=== PATIENT | female | born 1945 | race Caucasian/White ===

== ENCOUNTER → 2018-04-29 15:09 | Outpatient (CLI) | payer OTHER, SELFPAY ==
[2018-04-29 15:40] LABS: Add Manual Diff / Slide Review NO; Eosinophils Percent Auto 3.6 % (2-4); Hematocrit 40.5 % (36-46); Hemoglobin 13.5 g/dL (12.0-16.0); Lymphocytes Percent Auto 16.4 % (25-40); Mean Corpuscular HGB Conc 33.4 % (30-36); Mean Corpuscular Hemoglobin 31.1 PG (26-34); Monocytes Percent Auto 8.4 % (3-14); Neutrophils Absolute Auto 6300 /uL (3000-5900); Neutrophils Percent Auto 70.6 % (50-75); Platelet Count 306 X10^3/uL (150-400); Red Blood Cell Count 4.35 X10^6/uL (4.0-5.2); Red Cell Distribution Width 14.1 % (11.6-14.8)
[2018-04-29 16:12] LABS: Alanine Aminotransferase 20 IU/L (9-52); Albumin 4.3 g/dL (3.5-5.0); Albumin Globulin Ratio 1.3 (1.0-2.8); Alkaline Phosphatase 101 U/L (38-126); Aspartate Aminotransferase 21 IU/L (14-36); BUN Creatinine Ratio 24.4 (6-22); Bilirubin Total 0.5 mg/dL (0.2-1.3); Blood Urea Nitrogen 22 mg/dL (7-17); Calcium 9.6 mg/dL (8.4-10.2); Carbon Dioxide 31 mmol/L (22-32); Chloride 98 mmol/L (98-107); Estimated Glomerular Filt Rate > 60.0 mL/min (>60); Globulin 3.2 g/dL (1.7-4.1); Glucose 100 mg/dL (80-110); HDL Cholesterol 82 mg/dL (40-60); HEMOLYSIS < 15 (0-50); Potassium 4.7 mmol/L (3.4-5.1); Sodium 138 mmol/L (137-145); Total Protein 7.5 g/dL (6.3-8.2); Triglycerides 120 mg/dL (35-150)
[2018-04-29 16:14] LABS: LDL Cholesterol Calculated 219 mg/dL (<100)
[2018-04-29 16:17] LABS: Cholesterol 343 mg/dL (140-199)
== END ==
PROVIDERS: Family Provider Family Medicine; PCP Family Medicine; Visit Provider Family Medicine
DX: E78.5 Hyperlipidemia, unspecified (principal); J45.20 Mild intermittent asthma, uncomplicated
CPT/HCPCS: 36415; 80053; 80061; 84443; 85025

== ENCOUNTER → 2019-04-01 12:13 | Outpatient (CLI) | payer OTHER, SELFPAY ==
[2019-04-01 13:13] LABS: Add Manual Diff / Slide Review NO; Basophils Absolute Auto 100 /uL (0-100); Basophils Percent Auto 1.1 % (0-2); Eosinophils Absolute Auto 200 /uL (0-450); Eosinophils Percent Auto 2.2 % (2-4); Hematocrit 29.3 % (36-46); Hemoglobin 9.7 g/dL (12.0-16.0); Lymphocytes Absolute Auto 1100 /uL (1100-4500); Lymphocytes Percent Auto 13.6 % (25-40); Mean Corpuscular HGB Conc 33.3 % (30-36); Mean Corpuscular Hemoglobin 28.7 PG (26-34); Mean Corpuscular Volume 86.2 fL (80-100); Monocytes Absolute Auto 700 /uL (0-900); Monocytes Percent Auto 9.3 % (3-14); Neutrophils Absolute Auto 5800 /uL (1500-7000); Neutrophils Percent Auto 73.8 % (50-75); Platelet Count 386 X10^3/uL (150-400); Red Cell Distribution Width 15.7 % (11.6-14.8); White Blood Cell Count 7.9 X10^3/uL (4.5-11.0)
== END ==
PROVIDERS: PCP Family Medicine; Visit Provider Family Medicine
DX: D62 Acute posthemorrhagic anemia (principal); K92.2 Gastrointestinal hemorrhage, unspecified
CPT/HCPCS: 36415; 85025

== ENCOUNTER → 2019-05-25 12:05 | Outpatient (CLI) | payer OTHER, SELFPAY ==
[2019-05-25 12:48] LABS: Hematocrit 33.4 % (36-46); Hemoglobin 10.7 g/dL (12.0-16.0); Mean Corpuscular HGB Conc 32.1 % (30-36); Mean Corpuscular Hemoglobin 25.3 PG (26-34); Mean Corpuscular Volume 78.8 fL (80-100); Platelet Count 438 X10^3/uL (150-400); Red Blood Cell Count 4.23 X10^6/uL (4.0-5.2); Red Cell Distribution Width 17.5 % (11.6-14.8); White Blood Cell Count 8.2 X10^3/uL (4.5-11.0)
[2019-05-25 13:04] LABS: Neutrophils Absolute Manual 5822 /uL (3000-5900); Total Cells Counted 100
[2019-05-25 13:05] LABS: Microcytosis 3+
[2019-05-25 13:30] LABS: Ferritin 7.1 ng/mL (11.1-264)
== END ==
PROVIDERS: PCP Family Medicine; Visit Provider Family Medicine
DX: K92.2 Gastrointestinal hemorrhage, unspecified (principal); D64.9 Anemia, unspecified
CPT/HCPCS: 36415; 82728; 85025

== ENCOUNTER → 2019-08-03 11:57 | Outpatient (CLI) | payer OTHER, SELFPAY ==
[2019-08-03 12:47] LABS: Hemoglobin 12.4 g/dL (12.0-16.0)
== END ==
PROVIDERS: PCP Family Medicine; Visit Provider Family Medicine
DX: D64.9 Anemia, unspecified (principal)
CPT/HCPCS: 36415; 82728; 85014; 85018

== ENCOUNTER → 2020-04-20 12:13 | Outpatient (CLI) | payer MEDICARE, SELFPAY | PROVIDERS: PCP Family Medicine; Visit Provider Family Medicine | DX: R39.198 Other difficulties with micturition (principal) | CPT/HCPCS: 87077; 87086; 87186 ==

== ENCOUNTER → 2021-03-20 15:13 | Outpatient (CLI) | payer MEDICARE, SELFPAY ==
[2021-03-20 15:52] LABS: Add Manual Diff / Slide Review NO; Basophils Absolute Auto 100 /uL (0-100); Basophils Percent Auto 1.1 % (0-2); Eosinophils Absolute Auto 200 /uL (0-450); Eosinophils Percent Auto 2.9 % (2-4); Hemoglobin 13.4 g/dL (12.0-16.0); Lymphocytes Absolute Auto 800 /uL (1100-4500); Lymphocytes Percent Auto 13.8 % (25-40); Mean Corpuscular HGB Conc 32.6 % (30-36); Mean Corpuscular Hemoglobin 30.4 PG (26-34); Monocytes Absolute Auto 500 /uL (0-900); Monocytes Percent Auto 8.9 % (3-14); Neutrophils Absolute Auto 4500 /uL (1500-7000); Neutrophils Percent Auto 73.3 % (50-75); Platelet Count 259 X10^3/uL (150-400); Red Blood Cell Count 4.41 X10^6/uL (4.0-5.2); Red Cell Distribution Width 14.9 % (11.6-14.8); White Blood Cell Count 6.1 X10^3/uL (4.5-11.0)
[2021-03-20 16:53] LABS: Alanine Aminotransferase 14 IU/L (<35); Albumin 3.9 g/dL (3.5-5.0); Albumin Globulin Ratio 1.1 (1.0-2.8); Alkaline Phosphatase 87 U/L (38-126); Aspartate Aminotransferase 39 IU/L (14-36); BUN Creatinine Ratio 24.7 (6-22); Bilirubin Total 0.3 mg/dL (0.2-1.3); Blood Urea Nitrogen 21 mg/dL (7-17); Calcium 8.9 mg/dL (8.4-10.2); Carbon Dioxide 28 mmol/L (22-32); Chloride 98 mmol/L (98-107); Cholesterol 304 mg/dL (140-199); Estimated Glomerular Filt Rate > 60.0 mL/min (>60); Globulin 3.5 g/dL (1.7-4.1); Glucose 99 mg/dL (80-110); HDL Cholesterol 55 mg/dL (40-60); HEMOLYSIS < 15 (0-50); LDL Cholesterol Calculated 229 mg/dL (<100); Potassium 4.5 mmol/L (3.4-5.1); Sodium 132 mmol/L (137-145); Total Protein 7.4 g/dL (6.3-8.2); Triglycerides 100 mg/dL (35-150)
[2021-03-20 17:24] LABS: Ferritin 19 ng/mL (11-264)
[2021-03-22 19:36] LABS: ANA Screen, IFA Negative (.)
== END ==
PROVIDERS: PCP Family Medicine; Referring Provider Family Medicine; Visit Provider Family Medicine
DX: I10 Essential (primary) hypertension (principal); E78.5 Hyperlipidemia, unspecified; M25.40 Effusion, unspecified joint; M25.50 Pain in unspecified joint; K92.2 Gastrointestinal hemorrhage, unspecified
CPT/HCPCS: 36415; 80053; 80061; 82728; 84443; 85025; 86038

== ENCOUNTER → 2021-10-25 12:25 | Outpatient (CLI) | payer MEDICARE, SELFPAY ==
--- NOTE | 2021-10-25 12:27 | DI.RAD.S_ITS ---
PROCEDURE: XR LUMBAR SPINE 2-3V INDICATIONS: back pain TECHNIQUE: 3 views of the lumbar spine were acquired. COMPARISON: None. FINDINGS: Bones: 5 dvj-ivw-falohvw vertebrae are present. There is ejnj-nl-[id number] rightward curvature of lumbar spine centered at L3 level. No spondylolisthesis. Straightening of normal lumbar lordosis is seen. No vertebral body compression fractures. Degenerative endplate changes and bilateral facet arthrosis throughout lumbar spine more prominent at L3-4 through L5-S1 levels are seen. No suspicious bony lesions. Soft tissues: Overlying bowel gas pattern is normal. No suspicious soft tissue calcifications. IMPRESSION: Degenerative disc disease throughout lumbar spine as above. No acute compression fracture or spondylolisthesis. Ugfr-pp-tnoznpjg dextroscoliosis centered at L3 level. Dictated by: Ramírez Gallego M.D. on 10/25/2021 at 13:08 Approved by: Ramírez Gallego M.D. on 10/25/2021 at 13:09
--- NOTE | 2021-10-25 12:27 | DI.RAD.S_ITS ---
PROCEDURE: XR PELVIS 1-2V INDICATIONS: back pain TECHNIQUE: 1 view(s) of the pelvis acquired. COMPARISON: [facility], CR, XR LUMBAR SPINE 2-3V, 10/25/2021, 12:18. FINDINGS: Bones: No fractures or dislocations. No suspicious bony lesions. Mild joint narrowing with periarticular osteophyte formation of the hip joints bilaterally. Degenerative disc and facet disease involves the inferior lumbar spine. Soft tissues: Visualized bowel gas pattern is normal. No suspicious soft tissue calcifications. IMPRESSION: Mild symmetric hip joint degeneration. Dictated by: Alcides Green RR Interpreted: Ramírez Gallego MD on 10/25/2021 at 13:09 Transcribed by: KENIA on 10/25/2021 at 13:09 Approved by: Ramírez Gallego M.D. on 10/25/2021 at 15:34
== END ==
PROVIDERS: PCP Family Medicine; Referring Provider Family Medicine; Visit Provider Family Medicine
DX: M16.0 Bilateral primary osteoarthritis of hip (principal); M51.36 Other intervertebral disc degeneration, lumbar region; M51.37 Other intervertebral disc degeneration, lumbosacral region; M54.9 Dorsalgia, unspecified; M41.86 Other forms of scoliosis, lumbar region; G89.29 Other chronic pain
CPT/HCPCS: 72100; 72170

== ENCOUNTER → 2022-05-02 16:18 | Outpatient (CLI) | payer MEDICARE, SELFPAY ==
--- NOTE | 2022-05-02 | DI.RAD.S_ITS ---
PROCEDURE: XR HIP W PEL IF DONE RUTHANN MIN 4V INDICATIONS: PAIN IN LOWER BACK TECHNIQUE: AP pelvis with lateral view(s) of the bilat hip(s). COMPARISON: [facility], , XR PELVIS 1-2V, 10/25/2021, 12:18. FINDINGS: Bones: No fractures or dislocations. Pelvic ring appears intact. No suspicious bony lesions. Moderate bilateral axial joint space narrowing with periarticular osteophyte formation. Degenerative disc and facet disease involves the inferior lumbar spine. Soft tissues: The visualized bowel gas pattern is normal. No suspicious soft tissue calcifications. IMPRESSION: Moderate symmetric hip joint degeneration similar to prior examination. Dictated by: Alcides Green RRA Interpreted: Ramírez Gallego MD on 05/02/2022 at 16:51 Transcribed by: KENIA on 05/02/2022 at 16:52 Approved by: Ramírez Gallego M.D. on 05/02/2022 at 17:21
== END ==
PROVIDERS: PCP Family Medicine
DX: M54.50 Low back pain, unspecified (principal); M16.0 Bilateral primary osteoarthritis of hip
CPT/HCPCS: 73522

== ENCOUNTER → 2023-02-26 15:22 | Outpatient (CLI) | payer MEDICARE, SELFPAY ==
--- NOTE | 2023-02-26 15:24 | DI.RAD.S_ITS ---
PROCEDURE: XR FOOT RT MIN 3V INDICATIONS: Right foot pain lateral side x one month TECHNIQUE: 3 views of the foot were acquired. COMPARISON: None. FINDINGS: Bones: No fractures or dislocations. No suspicious bony lesions. Joint space narrowing and periarticular osteophyte formation at the 1st metatarsophalangeal joint, as well as the talonavicular and navicular cuneiform joints. Soft tissues: No tibiotalar joint effusion. Achilles tendon appears normal. IMPRESSION: Osteoarthritis. No acute fracture. No osseous lesion. If symptoms and/or clinical suspicion for pathology persist, further assessment with repeat, or advanced imaging (e.g., CT, MRI, or bone scan) may be helpful for further assessment. Dictated by: Logan Abraham M.D. on 02/26/2023 at 16:00 Transcribed by: BRUNO on 02/26/2023 at 16:01 Approved by: Logan Abraham M.D. on 02/26/2023 at 16:45
== END ==
PROVIDERS: PCP Family Medicine; Referring Provider Physician Assistant; Visit Provider Physician Assistant
DX: M19.071 Primary osteoarthritis, right ankle and foot (principal); M79.671 Pain in right foot
CPT/HCPCS: 73630

== ENCOUNTER → 2023-05-19 15:56 | Outpatient (CLI) | payer MEDICARE, SELFPAY ==
[2023-05-19 16:18] LABS: Appearance Urine UA CLOUDY; Bilirubin Urine UA NEGATIVE (NEGATIVE); Color Urine UA YELLOW; Glucose Urine UA NEGATIVE (Negative); Ketones Urine UA NEGATIVE (NEGATIVE); Leukocyte Esterase Urine UA 3+ (NEGATIVE); Nitrite Urine UA POSITIVE (Negative); Occult Blood Urine UA 2+ (Negative); Protein Urine UA NEGATIVE (Negative); Urobilinogen Urine UA 0.2 E.U./dL (0.2)
[2023-05-19 17:02] LABS: Bacteria Urine Few (2-10); RBC Urine 1-5/HPF (0-5/HPF); WBC Urine >100/HPF (0-5/HPF)
[2023-05-19 17:03] LABS: Culture Indicated Urine Specimen Cultured; Squamous Epithelial Cell Urine 1-5 /HPF (0-5/HPF)
== END ==
PROVIDERS: PCP Family Medicine; Referring Provider Family Medicine; Visit Provider Family Medicine
DX: R30.0 Dysuria (principal)
CPT/HCPCS: 81003; 81015; 87077; 87086; 87186

== ENCOUNTER → 2023-06-11 15:29 | Outpatient (CLI) | payer MEDICARE, SELFPAY ==
[2023-06-11 16:07] LABS: Appearance Urine UA CLEAR; Bilirubin Urine UA NEGATIVE (NEGATIVE); Color Urine UA YELLOW; Glucose Urine UA NEGATIVE (Negative); Ketones Urine UA NEGATIVE (NEGATIVE); Leukocyte Esterase Urine UA 2+ (NEGATIVE); Nitrite Urine UA NEGATIVE (Negative); Occult Blood Urine UA 2+ (Negative); Protein Urine UA NEGATIVE (Negative); Urobilinogen Urine UA 0.2 E.U./dL (0.2)
[2023-06-11 16:39] LABS: Bacteria Urine Few (2-10); Culture Indicated Urine Specimen Cultured; RBC Urine 0-1/HPF (0-5/HPF); Squamous Epithelial Cell Urine 0-1 /HPF (0-5/HPF); WBC Urine 30-100/HPF (0-5/HPF)
== END ==
PROVIDERS: PCP Family Medicine; Referring Provider Family Medicine; Visit Provider Family Medicine
DX: R82.90 Unspecified abnormal findings in urine (principal)
CPT/HCPCS: 81001; 87077; 87086; 87186

== ENCOUNTER → 2023-07-02 16:06 | Outpatient (CLI) | payer MEDICARE, SELFPAY ==
[2023-07-02 17:16] LABS: Appearance Urine UA CLEAR; Bilirubin Urine UA NEGATIVE (NEGATIVE); Color Urine UA YELLOW; Glucose Urine UA NEGATIVE (Negative); Ketones Urine UA NEGATIVE (NEGATIVE); Leukocyte Esterase Urine UA NEGATIVE (NEGATIVE); Nitrite Urine UA NEGATIVE (Negative); Occult Blood Urine UA NEGATIVE (Negative); Protein Urine UA NEGATIVE (Negative); Specific Gravity Urine UA 1.015 (1.000-1.035); Urobilinogen Urine UA 0.2 E.U./dL (0.2)
[2023-07-02 17:47] LABS: pH Urine UA 5.5 (4.5-8.0)
== END ==
PROVIDERS: PCP Family Medicine; Referring Provider Physician Assistant; Visit Provider Physician Assistant
DX: N30.00 Acute cystitis without hematuria (principal)
CPT/HCPCS: 81001

== ENCOUNTER → 2023-07-19 15:18 | Outpatient (CLI) | payer MEDICARE, SELFPAY | PROVIDERS: PCP Family Medicine; Visit Provider Nurse Practitioner Family | DX: N39.0 Urinary tract infection, site not specified (principal) | CPT/HCPCS: 87077; 87086; 87186 ==

== ENCOUNTER → 2024-03-15 10:45 | Outpatient (CLI) | payer MEDICARE, SELFPAY ==
[2024-03-15 11:19] LABS: Add Manual Diff / Slide Review NO; Basophils Absolute Auto 100 /uL (0-100); Basophils Percent Auto 1.3 % (0-2); Eosinophils Absolute Auto 200 /uL (0-450); Eosinophils Percent Auto 3.7 % (2-4); Hematocrit 37.7 % (36-46); Hemoglobin 12.5 g/dL (12.0-16.0); Lymphocytes Absolute Auto 800 /uL (1100-4500); Lymphocytes Percent Auto 14.1 % (25-40); Mean Corpuscular HGB Conc 33.1 % (30-36); Mean Corpuscular Hemoglobin 30.2 PG (26-34); Mean Corpuscular Volume 91.5 fL (80-100); Monocytes Absolute Auto 600 /uL (0-900); Monocytes Percent Auto 10.5 % (3-14); Neutrophils Absolute Auto 4000 /uL (1500-7000); Neutrophils Percent Auto 70.4 % (50-75); Platelet Count 274 X10^3/uL (150-400); Red Blood Cell Count 4.13 X10^6/uL (4.0-5.2); White Blood Cell Count 5.6 X10^3/uL (4.5-11.0)
[2024-03-15 11:36] LABS: Alanine Aminotransferase 10 IU/L (<35); Albumin 4.2 g/dL (3.5-5.0); Albumin Globulin Ratio 1.3 (1.0-2.8); Alkaline Phosphatase 69 U/L (38-126); Aspartate Aminotransferase 24 IU/L (14-36); BUN Creatinine Ratio 22.8 (6-22); Bilirubin Total 0.5 mg/dL (0.2-1.3); Blood Urea Nitrogen 21 mg/dL (7-17); Calcium 8.9 mg/dL (8.4-10.2); Carbon Dioxide 27 mmol/L (22-32); Chloride 101 mmol/L (98-107); Estimated Glomerular Filt Rate > 60 mL/min (>60); Globulin 3.3 g/dL (1.7-4.1); Glucose 100 mg/dL (80-110); HEMOLYSIS < 15 (0-50); Lipase 76 U/L (23-300); Sodium 133 mmol/L (137-145); Total Protein 7.5 g/dL (6.3-8.2)
== END ==
PROVIDERS: PCP Family Medicine; Referring Provider Family Medicine; Visit Provider Family Medicine
DX: E78.5 Hyperlipidemia, unspecified (principal); Z87.19 Personal history of other diseases of the digestive system; K25.9 Gastric ulcer, unspecified as acute or chronic, without hemorrhage or perforation; M54.9 Dorsalgia, unspecified; G89.29 Other chronic pain
CPT/HCPCS: 36415; 80053; 83690; 84443; 85025

== ENCOUNTER → 2024-04-16 16:35 | Outpatient (CLI) | payer MEDICARE, SELFPAY | PROVIDERS: PCP Family Medicine; Visit Provider Nurse Practitioner Family | DX: R30.0 Dysuria (principal) | CPT/HCPCS: 87077; 87086; 87186 ==

== ENCOUNTER → 2024-10-07 16:30 | Outpatient (CLI) | payer MEDICARE, SELFPAY | PROVIDERS: PCP Family Medicine; Visit Provider Student in an Organized Health Care Education/Training Program | DX: R30.0 Dysuria (principal) | CPT/HCPCS: 87077; 87086; 87186 ==

== ENCOUNTER → 2025-05-10 14:30 | Outpatient (CLI) | payer MEDICARE, SELFPAY | PROVIDERS: PCP Family Medicine; Visit Provider Chiropractor | DX: R30.0 Dysuria (principal) | CPT/HCPCS: 87077; 87086; 87186 ==

== ENCOUNTER → 2025-08-08 13:54 | Outpatient (CLI) | payer MEDICARE, SELFPAY ==
[2025-08-08 14:43] LABS: Add Manual Diff / Slide Review NO; Hematocrit 39.2 % (36-46); Hemoglobin 13.2 g/dL (12.0-16.0); Lymphocytes Absolute Auto 800 /uL (1100-4500); Mean Corpuscular HGB Conc 33.5 % (30-36); Mean Corpuscular Hemoglobin 31.6 PG (26-34); Mean Corpuscular Volume 94.2 fL (80-100); Platelet Count 222 X10^3/uL (150-400)
[2025-08-08 15:07] LABS: Alanine Aminotransferase 10 IU/L (<35); Albumin 4.2 g/dL (3.5-5.0); Albumin Globulin Ratio 1.3 (1.0-2.8); Alkaline Phosphatase 67 U/L (38-126); Blood Urea Nitrogen 17 mg/dL (7-17); Calcium 9.2 mg/dL (8.4-10.2); Carbon Dioxide 29 mmol/L (22-32); Chloride 97 mmol/L (98-107); Estimated Glomerular Filt Rate > 60 mL/min (>60); Globulin 3.2 g/dL (1.7-4.1); Glucose 104 mg/dL (70-99); HEMOLYSIS < 15 (0-50); Potassium 4.8 mmol/L (3.4-5.1); Sodium 132 mmol/L (137-145); Total Protein 7.4 g/dL (6.3-8.2)
[2025-08-08 15:42] LABS: TSH w/ Reflex to FT4 1.63 uIU/mL (0.47-4.68)
== END ==
PROVIDERS: PCP Family Medicine; Referring Provider Family Medicine; Visit Provider Family Medicine
DX: J44.9 Chronic obstructive pulmonary disease, unspecified (principal); E78.5 Hyperlipidemia, unspecified; K25.4 Chronic or unspecified gastric ulcer with hemorrhage
CPT/HCPCS: 36415; 80053; 84443; 85025

== ENCOUNTER → 2025-09-20 13:36 | Outpatient (CLI) | payer MEDICARE, SELFPAY | PROVIDERS: PCP Family Medicine; Visit Provider Chiropractor | DX: R30.0 Dysuria (principal) | CPT/HCPCS: 87077; 87086 ==

== ENCOUNTER 2025-09-23 14:51 | Inpatient (IN) | payer MEDICARE, SELFPAY ==
[2025-09-23 15:09] VITALS: BP 137/60; PULSE 74; RESP 17; TEMP 36.7; O2SAT 98; BMI 27.1
--- NOTE | 2025-09-23 15:09 | ED.GENADULT ---
HPI - General Adult General Chief complaint: Urogenital-Female Stated complaint: [facility] sent for IV antibiotics Time Seen by Provider: 09/23/25 14:56 History of Present Illness HPI narrative: 79-year-old woman seen 2 days ago diagnosed with urinary tract infection started on Cipro, came to urgent care today and still complaining of discomfort still lower down. Nothing that is ?inside? and she is chronic back pain so it is difficult to tell if there is any site pain. She states ?I have not good? but I am not particularly bad. No fevers, no vomiting, no chest pain or shortness for breath. On the she had Pseudomonas that was sensitive to cefepime, Cipro which she was placed on, levofloxacin which she has sensitivities to, meropenem and piperacillin. With findings still persisting will opt to treat her with piperacillin for at least 24 hours and re-evaluate Related Data Home Medications ?Medication ?Instructions ?Recorded ?Confirmed naproxen 2 tab PO .QHS 03/15/24 09/23/25 ciclopirox 8 % topical solution topical ONCE PM 09/23/25 Previous Rx's ?Medication ?Instructions ?Recorded ipratropium 0.5 mg-albuterol 3 mg 3 ml inhalation Q4-6H PRN 02/26/23 (2.5 mg base)/3 mL nebulization shortness of breath or wheezing soln #90 mL Disabled Parking Permit See Rx Instructions .Route 03/15/24 .COMPLEX #1 ea albuterol sulfate 90 mcg/actuation 2 puff inhalation Q4-6H PRN 03/15/24 aerosol inhaler (ProAir HFA) shortness of breath or wheezing #18 grams acyclovir 400 mg tablet 400 mg PO QDAY #90 tabs 09/15/24 montelukast 10 mg tablet 10 mg PO DAILY #90 tabs 02/03/25 pantoprazole 40 mg tablet,delayed 40 mg PO DAILY #90 tabs 02/03/25 release sertraline 100 mg tablet 100 mg PO DAILY #90 tabs 02/03/25 trazodone 150 mg tablet 300 mg (2 x 150 mg) PO QPM #180 02/03/25 tabs hydrocodone 5 mg-acetaminophen 325 1 tab PO DAILY PRN pain #30 tabs 08/08/25 mg tablet cefdinir 300 mg capsule 300 mg PO BID 7 days #14 caps 09/20/25 phenazopyridine 200 mg tablet 200 mg PO QPC PRN pain 6 doses #6 09/20/25 (Pyridium) tabs Allergies Allergy/AdvReac Type Severity Reaction Status Date / Time Sulfa (Sulfonamide Allergy Severe BURN/SWELLI Verified 09/23/25 15:08 Antibiotics) NG bupivacaine Allergy Mild Verified 09/23/25 15:08 chlorpheniramine (From Allergy Mild EMOTIONAL Verified 09/23/25 15:08 Actifed Cold-Allergy) DISORDER/ARRYTHMIA levofloxacin Allergy Mild ARTHRALGIA Verified 09/23/25 15:08 phenylephrine (From Actifed Allergy Mild EMOTIONAL Verified 09/23/25 15:08 Cold-Allergy) DISORDER/ARRYTHMIA pseudoephedrine (From Allergy Mild EMOTIONAL Verified 09/23/25 15:08 Actifed Cold-Allergy) DISORDER/ARRYTHMIA tetracycline Allergy Mild NAUSEA Verified 09/23/25 15:08 triprolidine (From Actifed Allergy Mild EMOTIONAL Verified 09/23/25 15:08 Cold-Allergy) DISORDER/ARRYTHMIA Review of Systems Review of Systems Narrative: Urinary frequency continues Patient History Medical History Rash and nonspecific skin eruption Joint swelling Joint pain Laceration of scalp Right shoulder tendinitis Trochanteric bursitis, right hip Acute blood loss anemia GI bleed COPD (chronic obstructive pulmonary disease) Asthma Hay fever Depression GERD (gastroesophageal reflux disease) Hyperlipidemia Surgical History History of knee replacement History of brain tumor History of shoulder surgery Status post cholecystectomy Status post appendectomy S/P total abdominal hysterectomy and bilateral salpingo-oophorectomy Status post laminectomy Social History household members: none alcohol intake: current substance use type: does not use Exam Initial Vital Signs Initial Vital Signs: Vital Signs Temperature 98.1 F 09/23/25 15:09 Pulse Rate 74 09/23/25 15:09 Respiratory Rate 17 09/23/25 15:09 Blood Pressure 137/60 09/23/25 15:09 Pulse Oximetry 98 09/23/25 15:09 Oxygen Delivery Method Room Air 09/23/25 15:09 General: Alert appropriate in no acute distress Respiratory: Able to speak in full sentences, no obvious respiratory distress Abdomen: No significant suprapubic tenderness, no flank pain Skin: No obvious rashes, warm and dry Neurologic: Grossly intact no obvious asymmetries or abnormalities Psych: appropriate insight and affect, cooperative Course Orders Ordered: ED Orders 09/23/25 15:20 CBC Auto Diff [Complete Blood Count AUTO DIFF] Stat CMP [Comprehensive Metabolic Panel] Stat 09/23/25 17:29 UA Complete [Urinalysis and Microscopic] Stat Urine Culture Stat Vital Signs Vital signs: Vital Signs - 8 hr 09/23/25 15:09 09/23/25 18:40 09/23/25 20:10 Temperature 98.1 F 97.5 F L Pulse Rate 74 57 L 57 L Respiratory Rate 17 16 18 Blood Pressure 137/60 184/83 H 152/71 H Pulse Oximetry 98 98 97 Oxygen Delivery Method Room Air Room Air Room Air Medical Decision Making Lab Data 09/23/25 15:20 09/23/25 15:20 Labs: Lab Results 09/23/25 09/23/25 Range/Units 15:20 17:29 WBC 7.8 (4.5-11.0) X10^3/uL RBC 4.09 (4.0-5.2) X10^6/uL Hgb 13.2 (12.0-16.0) g/dL Hct 38.8 (36-46) % MCV 94.9 (80-100) fL MCH 32.2 (26-34) PG MCHC 33.9 (30-36) % RDW 13.8 (11.6-14.8) % Plt Count 198 (150-400) X10^3/uL Neut % (Auto) 75.6 H (50-75) % Lymph % (Auto) 10.7 L (25-40) % Craig % (Auto) 9.9 (3-14) % Eos % (Auto) 2.9 (2-4) % Baso % (Auto) 0.9 (0-2) % Neut # (Auto) 5900 (3487-8244) /uL Lymph # (Auto) 800 L (3515-3127) /uL Craig # (Auto) 800 (0-900) /uL Eos # (Auto) 200 (0-450) /uL Baso # (Auto) 100 (0-100) /uL Sodium 132 L (137-145) mmol/L Potassium 4.3 (3.4-5.1) mmol/L Chloride 97 L (98-107) mmol/L Carbon Dioxide 27 (22-32) mmol/L BUN 23 H (7-17) mg/dL Creatinine 0.93 (0.52-1.04) mg/dL Estimated GFR > 60 (>60) mL/min BUN/Creatinine Ratio 24.7 H (6-22) Glucose 99 (70-99) mg/dL Calcium 8.9 (8.4-10.2) mg/dL Total Bilirubin 0.4 (0.2-1.3) mg/dL AST 28 (14-36) IU/L ALT 10 (<35) IU/L Alkaline Phosphatase 65 (38-126) U/L Total Protein 7.6 (6.3-8.2) g/dL Albumin 4.1 (3.5-5.0) g/dL Globulin 3.5 (1.7-4.1) g/dL Albumin/Globulin Ratio 1.2 (1.0-2.8) Urine Color Yellow Urine Appearance Cloudy Urine pH 6.0 (4.5-8.0) Ur Specific [place] 1.010 (1.000-1.035) Urine Protein Negative (Negative) Urine Glucose (UA) Negative (Negative) g/dL Urine Ketones Negative (NEGATIVE) Urine Occult Blood 1+ H (Negative) Urine Nitrate Negative (Negative) Urine Bilirubin Negative (NEGATIVE) Urine Urobilinogen 0.2 (0.2) E.U./dL Ur Leukocyte Esterase 3+ H (NEGATIVE) Urine RBC 0-1/hpf (0-5/HPF) Urine WBC >100/hpf H (0-5/HPF) Ur Squamous Epith Cells 0-1 /hpf (0-5/HPF) Urine Bacteria Many (>30) H (None) Ur Culture Indicated? Specimen cultured Vol Urine Centrifuged 10ml (spun) MDM Narrative Medical decision making narrative: 79-year-old woman with recently diagnosed Pseudomonas urinary tract infection after 3 days on ciprofloxacin to which cultures were sensitive, she is still symptomatic. Labs do not show significant leukocytosis, there was no evidence clinically of sepsis. No pyelonephritis. Chemistries show chronically slightly low sodium at 132 Creatinine is appropriate. Urinalysis still shows signs of infection Findings reviewed with who is on-call for Dr. [place]. We will recommend Zosyn IV for at least 24 hours to treat her Pseudomonas urinary tract infection client does not seem to be responding to outpatient ciprofloxacin. Patient is aware of need for hospitalization for IV antibiotics periods of some started in the emergency department and she is transferred to the floor in stable condition. Discharge Plan Departure Patient Disposition: Admitted as Observation Clinical Impression: Failure of outpatient treatment Urinary tract infection Qualifiers: Urinary tract infection type: acute cystitis Hematuria presence: with hematuria Qualified Code(s): N30.01 - Acute cystitis with hematuria Admit Date/Time: 09/23/25 22:11 Admit Provider: Sam Hidalgo
[2025-09-23 16:09] LABS: Add Manual Diff / Slide Review NO; Hematocrit 38.8 % (36-46); Hemoglobin 13.2 g/dL (12.0-16.0); Lymphocytes Absolute Auto 800 /uL (1100-4500); Mean Corpuscular HGB Conc 33.9 % (30-36); Mean Corpuscular Hemoglobin 32.2 PG (26-34); Mean Corpuscular Volume 94.9 fL (80-100); Platelet Count 198 X10^3/uL (150-400)
[2025-09-23 16:15] LABS: Alanine Aminotransferase 10 IU/L (<35); Albumin 4.1 g/dL (3.5-5.0); Albumin Globulin Ratio 1.2 (1.0-2.8); Alkaline Phosphatase 65 U/L (38-126); Blood Urea Nitrogen 23 mg/dL (7-17); Calcium 8.9 mg/dL (8.4-10.2); Carbon Dioxide 27 mmol/L (22-32); Chloride 97 mmol/L (98-107); Estimated Glomerular Filt Rate > 60 mL/min (>60); Globulin 3.5 g/dL (1.7-4.1); Glucose 99 mg/dL (70-99); HEMOLYSIS < 15 (0-50); Potassium 4.3 mmol/L (3.4-5.1); Sodium 132 mmol/L (137-145); Total Protein 7.6 g/dL (6.3-8.2)
[2025-09-23 17:40] LABS: Appearance Urine UA CLOUDY; Bilirubin Urine UA NEGATIVE (NEGATIVE); Color Urine UA YELLOW; Glucose Urine UA NEGATIVE (Negative); Ketones Urine UA NEGATIVE (NEGATIVE); Leukocyte Esterase Urine UA 3+ (NEGATIVE); Nitrite Urine UA NEGATIVE (Negative); Occult Blood Urine UA 1+ (Negative); Protein Urine UA NEGATIVE (Negative); Specific Gravity Urine UA 1.010 (1.000-1.035); Urobilinogen Urine UA 0.2 E.U./dL (0.2)
[2025-09-23 17:44] LABS: pH Urine UA 6.0 (4.5-8.0)
[2025-09-23 17:45] LABS: Culture Indicated Urine Specimen Cultured
[2025-09-23 18:40] VITALS: BP 184/83; PULSE 57; RESP 16; TEMP 36.4; O2SAT 98
[2025-09-23 20:10] VITALS: BP 152/71; PULSE 57; RESP 18; O2SAT 97
[2025-09-23 22:00] VITALS: BP 150/70; PULSE 56; RESP 18; O2SAT 97
--- NOTE | 2025-09-23 22:15 | PC.NURSE ---
pt informed of admission for IV antibiotics
[2025-09-23] MEDS: PIPERACILLIN/TAZO 4.5 GM in SODIUM CHLORIDE 0.9% 100 ML IV (22:22)
--- NOTE | 2025-09-23 22:33 | PC.NURSE ---
pt asking about admission, explained to pt again about admission for IV antibiotics
[2025-09-23 23:05] VITALS: BMI 27.1
[2025-09-23 23:20] VITALS: BP 190/86; PULSE 65; RESP 16; TEMP 36.6; O2SAT 98
[2025-09-24] MEDS: MONTELUKAST 10 MG TABLET PO ×2 (00:40→23:52)
[2025-09-24] MEDS: SERTRALINE 50 MG TABLET 100 MG PO ×2 (00:40→23:52)
[2025-09-24] MEDS: ACYCLOVIR 400 MG TABLET PO (00:40)
[2025-09-24 03:29] VITALS: BP 144/64; PULSE 70; RESP 16; TEMP 36.7; O2SAT 98
[2025-09-24] MEDS: PIPERACILLIN/TAZO 4.5 GM in SODIUM CHLORIDE 0.9% 100 ML IV (04:31)
[2025-09-24] MEDS: ENOXAPARIN 40 MG/0.4 ML SYRINGE SUBCUT (08:34)
[2025-09-24 08:46] VITALS: BP 123/69; PULSE 70; RESP 15; TEMP 36.8; O2SAT 92
--- NOTE | 2025-09-24 10:55 | PM.HP.1 ---
History of Present Illness History of Present Illness Date Patient Seen: 09/24/25 Time Patient Seen: 10:55 Chief complaint: [facility] sent for IV antibiotics Narrative: Chief complaint UTI resistant to oral meds needs IVF Patient presented called from clinic UTI resistant to multiple agents requires IV treatment sensitive to penems and Zosyn. She has been dealing with his UTI for low bit but is not been having any costovertebral angle tenderness. Patient feels fine this morning no issues with Zosyn so far goal will be at least 3 doses of this admitted yesterday for with 1st dose we will get 2nd dose today. Still have feeling achy urgency issue. She does have history of 4th degree perineal laceration from childbirth. She is allergic to Levaquin. Doing well with pain control with as needed Axis. [facility] Medical History Rash and nonspecific skin eruption Joint swelling Joint pain Laceration of scalp Right shoulder tendinitis Trochanteric bursitis, right hip Acute blood loss anemia GI bleed COPD (chronic obstructive pulmonary disease) Asthma Hay fever Depression GERD (gastroesophageal reflux disease) Hyperlipidemia Surgical History History of knee replacement History of brain tumor History of shoulder surgery Status post cholecystectomy Status post appendectomy S/P total abdominal hysterectomy and bilateral salpingo-oophorectomy Status post laminectomy Social History household members: none Smoking Status: Smoker, status unknown alcohol intake: current substance use type: does not use Meds Home Medications and Allergies Home Medications ?Medication ?Instructions ?Recorded ?Confirmed ?Type Disabled Parking Permit See Rx Instructions .Route 03/15/24 09/23/25 Rx .COMPLEX #1 ea albuterol sulfate 90 mcg/actuation 2 puff inhalation Q4-6H PRN 03/15/24 09/23/25 Rx aerosol inhaler (ProAir HFA) shortness of breath or wheezing #18 grams naproxen 2 tab PO .QHS 03/15/24 09/23/25 History acyclovir 400 mg tablet 400 mg PO QDAY #90 tabs 09/15/24 09/23/25 Rx montelukast 10 mg tablet 10 mg PO DAILY #90 tabs 02/03/25 09/23/25 Rx pantoprazole 40 mg tablet,delayed 40 mg PO DAILY #90 tabs 02/03/25 09/23/25 Rx release sertraline 100 mg tablet 100 mg PO DAILY #90 tabs 02/03/25 09/23/25 Rx trazodone 150 mg tablet 300 mg (2 x 150 mg) PO QPM #180 02/03/25 09/23/25 Rx tabs hydrocodone 5 mg-acetaminophen 325 1 tab PO DAILY PRN pain #30 tabs 08/08/25 09/23/25 Rx mg tablet ciclopirox 8 % topical solution topical ONCE PM 09/23/25 History Allergies Allergy/AdvReac Type Severity Reaction Status Date / Time Sulfa (Sulfonamide Allergy Severe BURN/SWELLI Verified 09/23/25 15:08 Antibiotics) NG bupivacaine Allergy Mild Verified 09/23/25 15:08 chlorpheniramine (From Allergy Mild EMOTIONAL Verified 09/23/25 15:08 Actifed Cold-Allergy) DISORDER/ARRYTHMIA levofloxacin Allergy Mild ARTHRALGIA Verified 09/23/25 15:08 phenylephrine (From Actifed Allergy Mild EMOTIONAL Verified 09/23/25 15:08 Cold-Allergy) DISORDER/ARRYTHMIA pseudoephedrine (From Allergy Mild EMOTIONAL Verified 09/23/25 15:08 Actifed Cold-Allergy) DISORDER/ARRYTHMIA tetracycline Allergy Mild NAUSEA Verified 09/23/25 15:08 triprolidine (From Actifed Allergy Mild EMOTIONAL Verified 09/23/25 15:08 Cold-Allergy) DISORDER/ARRYTHMIA Review of Systems Review of Systems Narrative: All systems reviewed and negative except as otherwise documented in HPI Exam Vital Signs (past 8 hours): - 09/24/25 03:29 09/24/25 08:46 Temperature 98.1 F 98.2 F Pulse Rate 70 70 Respiratory Rate 16 15 Blood Pressure 144/64 H 123/69 Pulse Oximetry 98 92 Oxygen Flow Rate 0 Oxygen Delivery Method Room Air Oxygen Flow Rate 0 Narrative Exam Narrative: Resting comfortably in hospital bed Const Other: Well-developed well-nourished Resp Other: Moving air well clear to auscultation bilaterally Cardio Other: Regular rate S1-S2 no pedal edema GI Other: Soft nontender active bowel sounds no costovertebral angle tenderness bilaterally Neuro Other: Alert awake oriented x3 moving all limbs Objective Labs 09/23/25 15:20 11/21/25 15:20 Labs: Laboratory Results - last 24 hr 09/23/25 09/23/25 15:20 17:29 WBC 7.8 RBC 4.09 Hgb 13.2 Hct 38.8 MCV 94.9 MCH 32.2 MCHC 33.9 RDW 13.8 Plt Count 198 Neut % (Auto) 75.6 H Lymph % (Auto) 10.7 L Roberts % (Auto) 9.9 Eos % (Auto) 2.9 Baso % (Auto) 0.9 Neut # (Auto) 5900 Lymph # (Auto) 800 L Roberts # (Auto) 800 Eos # (Auto) 200 Baso # (Auto) 100 Sodium 132 L Potassium 4.3 Chloride 97 L Carbon Dioxide 27 BUN 23 H Creatinine 0.93 Estimated GFR > 60 BUN/Creatinine Ratio 24.7 H Glucose 99 Calcium 8.9 Total Bilirubin 0.4 AST 28 ALT 10 Alkaline Phosphatase 65 Total Protein 7.6 Albumin 4.1 Globulin 3.5 Albumin/Globulin Ratio 1.2 Urine Color Yellow Urine Appearance Cloudy Urine pH 6.0 Ur Specific [place] 1.010 Urine Protein Negative Urine Glucose (UA) Negative Urine Ketones Negative Urine Occult Blood 1+ H Urine Nitrate Negative Urine Bilirubin Negative Urine Urobilinogen 0.2 Ur Leukocyte Esterase 3+ H Urine RBC 0-1/hpf Urine WBC >100/hpf H Ur Squamous Epith Cells 0-1 /hpf Urine Bacteria Many (>30) H Ur Culture Indicated? Specimen cultured Vol Urine Centrifuged 10ml (spun) Assessment & Plan Assessment & Plan narrative: # multiple drug-resistant UTI Failed Cipro allergic to Levaquin continue Zosyn Q 24 IV with IVF planning to drink trying to flush it out. As needed pain meds. #MDD Stable continue home meds Dispo: Requires IV antibiotic treatment med at least 1 more day goal is 3 treatments total at least before transitioning back to oral PCP: Felix Diet: General MDM: Daughter Jing Code: Supervisor Matrix-Based Coding :: [TOTAL MINUTES] spent with patient and on the chart (including review of chart, obtaining history, exam, reviewing outside data, placing orders, documenting exam and treatment plan, and counseling patient) on [DATE]. Quality VTE Deep Vein Thrombosis/Pulmonary Embolism Present on Admission: No
--- NOTE | 2025-09-24 11:11 | CM.DANOTE ---
Initial DCP Assessment Note. Review EMR and PT Interview. Met with patient at bedside to discuss discharge needs.PT is alert x 4 sitting up in chair. No acute distress. Independent. Lives alone. Payor:??LIOR VILLALOBOS PCP: Summary & Plan:?79 yo female arrived to ED, was called back for +Urine Cx. Admitted OBS. Dx. UTI. Plan: 2-3 days of IV Abx. then discharge home on PO. Her car is in the Hospital parking lot. Discharge Planning/Care Management CM Discharge Assessment Start: 09/23/25 22:37 Freq: Status: Active Protocol: Document 09/24/25 11:09 (Rec: 09/24/25 11:11 [id number]) Discharge Planning Assessment Assigned Discharge Sabina Urrutia RN CM Government Relations Analyst Provider Dr. Washington Insurance [facility] Advance Directives? No History Provided By Patient Has Patient been No admitted in last 30 days? Prior Living Apartment/Condo Arrangements Household Members none Type of Drives own vehicle transporation used prior to admit Independent with ADL Yes 's Is patient alert and Yes oriented? Caregiver for No Another Barriers to No Discharge Discharge Plan Home Transportation Her car is in the Hospital parking lot. She will drive Arrangement herself home. Referrals Initiated None needed Review Status In Process Please Provide Date 09/24/25 Initial DC Assessment Was Performed Next Review Type Continued Stay Review
[2025-09-24] MEDS: PIPERACILLIN/TAZO 3.375 GM in SODIUM CHLORIDE 0.9% 100 ML IV ×2 (11:48→20:41)
[2025-09-24] MEDS: SODIUM CHLORIDE 0.9% 1,000 ML 42 ML IV (12:41)
[2025-09-24 20:00] VITALS: BP 143/64; PULSE 61; RESP 12; TEMP 36.8; O2SAT 98
[2025-09-24] MEDS: ACETAMINOPHEN 325 MG TABLET 650 MG PO (20:48)
[2025-09-25] MEDS: PIPERACILLIN/TAZO 3.375 GM in SODIUM CHLORIDE 0.9% 100 ML IV ×3 (04:55→20:40)
[2025-09-25 07:00] VITALS: BP 134/71; PULSE 63; RESP 16; TEMP 37; O2SAT 91
[2025-09-25 07:39] LABS: Add Manual Diff / Slide Review NO; Hematocrit 32.0 % (36-46); Hemoglobin 10.9 g/dL (12.0-16.0); Lymphocytes Absolute Auto 1200 /uL (1100-4500); Mean Corpuscular HGB Conc 34.0 % (30-36); Mean Corpuscular Hemoglobin 31.9 PG (26-34); Mean Corpuscular Volume 93.7 fL (80-100); Platelet Count 212 X10^3/uL (150-400)
[2025-09-25 07:41] LABS: Alanine Aminotransferase 8 IU/L (<35); Albumin 3.3 g/dL (3.5-5.0); Albumin Globulin Ratio 1.1 (1.0-2.8); Alkaline Phosphatase 51 U/L (38-126); Blood Urea Nitrogen 17 mg/dL (7-17); Calcium 8.3 mg/dL (8.4-10.2); Carbon Dioxide 26 mmol/L (22-32); Chloride 101 mmol/L (98-107); Estimated Glomerular Filt Rate 60 mL/min (>60); Globulin 2.9 g/dL (1.7-4.1); Glucose 85 mg/dL (70-99); HEMOLYSIS < 15 (0-50); Potassium 3.8 mmol/L (3.4-5.1); Sodium 130 mmol/L (137-145); Total Protein 6.2 g/dL (6.3-8.2)
[2025-09-25] MEDS: SODIUM CHLORIDE 0.9% FLUSH 10 ML IV (08:25)
[2025-09-25] MEDS: ENOXAPARIN 40 MG/0.4 ML SYRINGE SUBCUT (08:25)
--- NOTE | 2025-09-25 11:17 | PM.PN.1 ---
Subjective Subjective Date Patient Seen: 09/25/25 Time Patient Seen: 10:15 Interval history: Chief complaint resistant UTI patient reports feels a bit better today but still has odd achy pain in her back unlike any other previous pain. She is urinating more but still cloudy. Had good bowel movement. Appetite is so-so. Exam Vital Signs (past 8 hours): - 09/25/25 07:00 Temperature 98.6 F Pulse Rate 63 Respiratory Rate 16 Blood Pressure 134/71 Pulse Oximetry 91 Oxygen Flow Rate 0 Oxygen Delivery Method Room Air Oxygen Flow Rate 0 Narrative Exam Narrative: Snoozing in bed Const Other: well-developed well-nourished Cardio Other: regular rate and rhythm S1-S2 GI Other: soft nontender active bowel sounds Neuro Other: alert awake oriented x3 moving all limbs equally Objective Labs 09/25/25 07:05 09/25/25 07:05 Labs: Laboratory Results - last 24 hr 09/25/25 07:05 WBC 5.2 RBC 3.42 L Hgb 10.9 L Hct 32.0 L MCV 93.7 MCH 31.9 MCHC 34.0 RDW 13.7 Plt Count 212 Neut % (Auto) 57.5 Lymph % (Auto) 22.7 L [place] % (Auto) 13.2 Eos % (Auto) 5.4 H Baso % (Auto) 1.2 Neut # (Auto) 3000 Lymph # (Auto) 1200 [place] # (Auto) 700 Eos # (Auto) 300 Baso # (Auto) 100 Sodium 130 L Potassium 3.8 Chloride 101 Carbon Dioxide 26 BUN 17 Creatinine 0.96 Estimated GFR 60 BUN/Creatinine Ratio 17.7 Glucose 85 Calcium 8.3 L Total Bilirubin 0.3 AST 19 ALT 8 Alkaline Phosphatase 51 Total Protein 6.2 L Albumin 3.3 L Globulin 2.9 Albumin/Globulin Ratio 1.1 [facility] Medical History Rash and nonspecific skin eruption Joint swelling Joint pain Laceration of scalp Right shoulder tendinitis Trochanteric bursitis, right hip Acute blood loss anemia GI bleed COPD (chronic obstructive pulmonary disease) Asthma Hay fever Depression GERD (gastroesophageal reflux disease) Hyperlipidemia Surgical History History of knee replacement History of brain tumor History of shoulder surgery Status post cholecystectomy Status post appendectomy S/P total abdominal hysterectomy and bilateral salpingo-oophorectomy Status post laminectomy Social History household members: none Smoking Status: Smoker, status unknown alcohol intake: current substance use type: does not use Assessment & Plan Assessment & Plan narrative: # multiple drug-resistant UTI Failed Cipro allergic to Levaquin continue Zosyn Q 24 IV with IVF try to flush it out. As needed pain meds. overall improving clinical status still has achy back continue treatment. #MDD Stable continue home meds Dispo: Requires IV antibiotic treatment maybe able to go home tomorrow on oral PCP: Felix Diet: General MDM: Daughter Jing Code: Strap Making Machine Operator-Based Coding :: [TOTAL MINUTES] spent with patient and on the chart (including review of chart, obtaining history, exam, reviewing outside data, placing orders, documenting exam and treatment plan, and counseling patient) on [DATE]. Quality VTE Deep Vein Thrombosis/Pulmonary Embolism Present on Admission: No
[2025-09-25] MEDS: SODIUM CHLORIDE 0.9% 1,000 ML 42 ML IV (13:25)
[2025-09-25 20:36] VITALS: BP 162/79; PULSE 70; RESP 16; TEMP 36.8; O2SAT 94
[2025-09-25] MEDS: ACYCLOVIR 400 MG TABLET PO (21:58)
[2025-09-25] MEDS: MONTELUKAST 10 MG TABLET PO (21:58)
[2025-09-25] MEDS: SERTRALINE 50 MG TABLET 100 MG PO (21:58)
[2025-09-26 05:23] LABS: Add Manual Diff / Slide Review NO; Hematocrit 32.2 % (36-46); Hemoglobin 10.9 g/dL (12.0-16.0); Lymphocytes Absolute Auto 1200 /uL (1100-4500); Mean Corpuscular HGB Conc 33.8 % (30-36); Mean Corpuscular Hemoglobin 31.5 PG (26-34); Mean Corpuscular Volume 93.3 fL (80-100); Platelet Count 211 X10^3/uL (150-400)
[2025-09-26 05:31] LABS: Alanine Aminotransferase 8 IU/L (<35); Albumin 3.3 g/dL (3.5-5.0); Albumin Globulin Ratio 1.1 (1.0-2.8); Alkaline Phosphatase 49 U/L (38-126); Blood Urea Nitrogen 21 mg/dL (7-17); Calcium 8.5 mg/dL (8.4-10.2); Carbon Dioxide 27 mmol/L (22-32); Chloride 100 mmol/L (98-107); Estimated Glomerular Filt Rate > 60 mL/min (>60); Globulin 3.0 g/dL (1.7-4.1); Glucose 90 mg/dL (70-99); HEMOLYSIS < 15 (0-50); Potassium 4.0 mmol/L (3.4-5.1); Sodium 131 mmol/L (137-145); Total Protein 6.3 g/dL (6.3-8.2)
[2025-09-26 07:30] VITALS: BP 148/64; PULSE 61; RESP 16; TEMP 36.6; O2SAT 91
--- NOTE | 2025-09-26 08:16 | P.PN_ITS ---
Subjective Subjective Date Patient Seen: 09/26/25 Time Patient Seen: 08:16 Interval history: Patient seen and evaluated. Patient said she had a good night last night feeling a little bit better still a little unsure about going home. Feels unsteady. She says she is eating well. Having some concerns with urination and bowel movement. Needs to be investigated as an outpatient. Vital signs show some mild hypertension. White blood cell counts normal. Urine culture grew out Pseudomonas. Patient currently on Zosyn. Exam Vital Signs (past 8 hours): Oxygen Delivery Method Room Air Oxygen Flow Rate 0 Narrative Exam Narrative: General: Alert no apparent distress HEENT: Pupils equal round and reactive or mucosa is moist Cardio: S1-S2 regular rate and rhythm Respiratory: Lungs are clear normal respiratory effort Abdomen: Soft nontender Extremities: Full range of motion. Objective Labs 09/26/25 05:00 09/26/25 05:00 Labs: Laboratory Results - last 24 hr 09/26/25 05:00 WBC 6.0 RBC 3.45 L Hgb 10.9 L Hct 32.2 L MCV 93.3 MCH 31.5 MCHC 33.8 RDW 13.9 Plt Count 211 Neut % (Auto) 60.1 Lymph % (Auto) 20.6 L Wirt % (Auto) 11.6 Eos % (Auto) 6.5 H Baso % (Auto) 1.2 Neut # (Auto) 3600 Lymph # (Auto) 1200 Wirt # (Auto) 700 Eos # (Auto) 400 Baso # (Auto) 100 Sodium 131 L Potassium 4.0 Chloride 100 Carbon Dioxide 27 BUN 21 H Creatinine 0.90 Estimated GFR > 60 BUN/Creatinine Ratio 23.3 H Glucose 90 Calcium 8.5 Total Bilirubin 0.2 AST 18 ALT 8 Alkaline Phosphatase 49 Total Protein 6.3 Albumin 3.3 L Globulin 3.0 Albumin/Globulin Ratio 1.1 [facility] Medical History Rash and nonspecific skin eruption Joint swelling Joint pain Laceration of scalp Right shoulder tendinitis Trochanteric bursitis, right hip Acute blood loss anemia GI bleed COPD (chronic obstructive pulmonary disease) Asthma Hay fever Depression GERD (gastroesophageal reflux disease) Hyperlipidemia Surgical History History of knee replacement History of brain tumor History of shoulder surgery Status post cholecystectomy Status post appendectomy S/P total abdominal hysterectomy and bilateral salpingo-oophorectomy Status post laminectomy Social History household members: none Smoking Status: Smoker, status unknown alcohol intake: current substance use type: does not use Assessment & Plan Assessment and plan (1) Urinary tract infection: Qualifiers: Hematuria presence: with hematuria Urinary tract infection type: acute cystitis Qualified Code(s): N30.01 - Acute cystitis with hematuria Status: Acute Assessment & Plan narrative: Urinary tract infection Pseudomonas multidrug resistant. Currently on IV Zosyn. White blood cell count stable no flank pain. No diarrhea. Improved symptom tolentino. Anticipate discharge home tomorrow with oral antibiotics. Will not need IV antibiotics at home or PICC line. Hypertension. Patient mildly hypertensive here in the hospital. Will start lisinopril 10 mg a day. Depression. Continue with sertraline 100 mg a day and trazodone at night for depression and sleep. DVT prophylaxis Disposition and plan home tomorrow with oral antibiotics Time-Based Coding :: [TOTAL MINUTES] spent with patient and on the chart (including review of chart, obtaining history, exam, reviewing outside data, placing orders, documenting exam and treatment plan, and counseling patient) on [DATE]. Quality VTE Deep Vein Thrombosis/Pulmonary Embolism Present on Admission: No [facility] [employer] Document charge(s): Yes Charge Codes Subsequent inpatient/observation care: [id number]
[2025-09-26] MEDS: ENOXAPARIN 40 MG/0.4 ML SYRINGE SUBCUT (09:01)
[2025-09-26] MEDS: SODIUM CHLORIDE 0.9% FLUSH 10 ML IV ×3 (09:01→22:50)
[2025-09-26] MEDS: PIPERACILLIN/TAZO 3.375 GM in SODIUM CHLORIDE 0.9% 100 ML IV ×2 (12:05→22:52)
--- NOTE | 2025-09-26 15:40 | CM.DPC ---
DCP Cont: Per MD, pt making progress and labs look improved and likely could d/c home today but pt does not feel medically stable for discharge today and plan of d/c home on po abx tomorrow . Per Rn, pt has been independent in room and no concerns noted. Pt has own vehicle in the parking lot to transport herself home at d/c. NORMAN Nunez
[2025-09-26] MEDS: ACETAMINOPHEN 325 MG TABLET 650 MG PO (18:40)
[2025-09-26 21:52] VITALS: BP 184/80; PULSE 64; RESP 16; O2SAT 95
[2025-09-27] MEDS: ACYCLOVIR 400 MG TABLET PO (01:16)
[2025-09-27] MEDS: MONTELUKAST 10 MG TABLET PO (01:16)
[2025-09-27] MEDS: SERTRALINE 50 MG TABLET 100 MG PO (01:16)
[2025-09-27] MEDS: PIPERACILLIN/TAZO 3.375 GM in SODIUM CHLORIDE 0.9% 100 ML IV (06:33)
[2025-09-27 06:51] LABS: Add Manual Diff / Slide Review NO; Hematocrit 32.7 % (36-46); Hemoglobin 11.2 g/dL (12.0-16.0); Lymphocytes Absolute Auto 1200 /uL (1100-4500); Mean Corpuscular HGB Conc 34.3 % (30-36); Mean Corpuscular Hemoglobin 32.3 PG (26-34); Mean Corpuscular Volume 94.1 fL (80-100); Platelet Count 221 X10^3/uL (150-400)
[2025-09-27 07:00] VITALS: BP 154/76; PULSE 60; RESP 16; TEMP 36.9; O2SAT 94
[2025-09-27 07:04] LABS: Alanine Aminotransferase 9 IU/L (<35); Albumin 3.4 g/dL (3.5-5.0); Albumin Globulin Ratio 1.1 (1.0-2.8); Alkaline Phosphatase 47 U/L (38-126); Blood Urea Nitrogen 20 mg/dL (7-17); Calcium 8.4 mg/dL (8.4-10.2); Carbon Dioxide 27 mmol/L (22-32); Chloride 100 mmol/L (98-107); Estimated Glomerular Filt Rate > 60 mL/min (>60); Globulin 3.0 g/dL (1.7-4.1); Glucose 81 mg/dL (70-99); HEMOLYSIS < 15 (0-50); Potassium 3.9 mmol/L (3.4-5.1); Sodium 131 mmol/L (137-145); Total Protein 6.4 g/dL (6.3-8.2)
--- NOTE | 2025-09-27 09:06 | PM.DS.IH.1 ---
History of Present Illness History of Present Illness Date Patient Seen: 09/27/25 Time Patient Seen: 09:06 Chief complaint: [facility] sent for IV antibiotics Discharge Providers Provider Date of admission: 09/25/25 10:50 Discharge Date: 09/27/25 Primary care physician: Sarabjit Washington MD Discharge provider: Sarabjit Washington MD Summary Hospital Course Discharge Diagnosis: Urinary tract infection multidrug resistant failed outpatient therapy Hypertension Depression Osteoarthritis Hospital Course: Patient was admitted to the hospital for IV antibiotics. With the patient treatment of urinary tract infection which ultimately grew Pseudomonas which was multi-drug resistant. Patient continued to have symptoms. Of not feeling well urinary symptoms. She had no confusion or fever or flank pain. Hospital stay. Patient was placed on Zosyn received 72 hours of IV Zosyn. Patient has had her vital signs monitored her white blood cell count and other laboratory tests checked. During her hospital stay she was ambulating eating well urinating well and having no difficulty with bowel movements. She responded well to the IV antibiotics. The time of discharge her blood pressure was a little high we elected to start a antihypertensive medication amlodipine 5 mg a day for home. Patient will be transferred from IV Zosyn to oral Omnicef. She will follow up in 10 days in the office. Exam Vital Signs (past 8 hours): - 09/27/25 07:00 Temperature 98.4 F Pulse Rate 60 Respiratory Rate 16 Blood Pressure 154/76 H Pulse Oximetry 94 Oxygen Delivery Method Room Air Oxygen Flow Rate 0 Narrative Exam Narrative: Gen.: Alert and oriented x3 no apparent distress. HEENT: NCAT PERRLA tympanic membranes are clear nares are patent oral mucosa is moist no tonsillar hypertrophy neck is supple without lymphadenopathy no thyroid enlargement. Cardio: S1-S2 regular rate and rhythm no murmurs appreciated. Respiratory: Lungs are clear to auscultation no wheezes or crackles normal respiratory effort. Abdomen: Soft nontender no rebound or guarding no liver spleen enlargement no appreciable hernias Extremities: Full range of motion no appreciable weakness no cyanosis or edema. Neurologic: Grossly intact. Objective Labs 09/27/25 06:45 09/27/25 06:45 Labs: Laboratory Results - last 24 hr 09/27/25 06:45 WBC 6.0 RBC 3.47 L Hgb 11.2 L Hct 32.7 L MCV 94.1 MCH 32.3 MCHC 34.3 RDW 13.5 Plt Count 221 Neut % (Auto) 60.5 Lymph % (Auto) 19.9 L Mcclain % (Auto) 11.3 Eos % (Auto) 7.2 H Baso % (Auto) 1.1 Neut # (Auto) 3600 Lymph # (Auto) 1200 Mcclain # (Auto) 700 Eos # (Auto) 400 Baso # (Auto) 100 Sodium 131 L Potassium 3.9 Chloride 100 Carbon Dioxide 27 BUN 20 H Creatinine 0.88 Estimated GFR > 60 BUN/Creatinine Ratio 22.7 H Glucose 81 Calcium 8.4 Total Bilirubin 0.3 AST 21 ALT 9 Alkaline Phosphatase 47 Total Protein 6.4 Albumin 3.4 L Globulin 3.0 Albumin/Globulin Ratio 1.1 PFSH Medical History Rash and nonspecific skin eruption Joint swelling Joint pain Laceration of scalp Right shoulder tendinitis Trochanteric bursitis, right hip Acute blood loss anemia GI bleed COPD (chronic obstructive pulmonary disease) Asthma Hay fever Depression GERD (gastroesophageal reflux disease) Hyperlipidemia Surgical History History of knee replacement History of brain tumor History of shoulder surgery Status post cholecystectomy Status post appendectomy S/P total abdominal hysterectomy and bilateral salpingo-oophorectomy Status post laminectomy Social History household members: none Smoking Status: Smoker, status unknown alcohol intake: current substance use type: does not use Discharge Plan Discharge Plan Patient Disposition: Home Provider Discharge Comment: follow up with Dr. Washington in 10 days Discharge orders & Medications Prescriptions: New cefdinir 300 mg capsule 300 mg PO BID Qty: 10 0RF amlodipine 5 mg tablet 5 mg PO DAILY Qty: 30 3RF Continued naproxen 2 tab PO .QHS acyclovir 400 mg tablet 400 mg PO QDAY Qty: 90 3RF trazodone 150 mg tablet 300 mg PO QPM Qty: 180 3RF montelukast 10 mg tablet 10 mg PO DAILY Qty: 90 3RF hydrocodone-acetaminophen 5-325 mg tablet 1 tab PO DAILY PRN (Reason: pain) Qty: 30 0RF Disabled Parking Permit See Rx Instructions .ROUTE .COMPLEX Qty: 1 0RF Rx Instructions: I find this patient to be medically disabled and qualified for Disabled Parking as indicated, and signed, on the accompanying Disabled Parking Application for Individuals ; albuterol sulfate [ProAir HFA] 90 mcg/actuation HFA aerosol inhaler 2 puff INHALATION Q4-6H PRN (Reason: shortness of breath or wheezing) Qty: 18 11RF sertraline 100 mg tablet 100 mg PO DAILY Qty: 90 3RF pantoprazole 40 mg tablet,delayed release (DR/EC) 40 mg PO DAILY Qty: 90 3RF ciclopirox 8 % solution 1 applic topical ONCE PM Patient Comments: no longer taking Follow up/Referrals: Sarabjit Washington MD [Primary Care Provider, [facility]] Discharge Data Primary Care Provider: Sarabjit Washington Quality VTE Deep Vein Thrombosis/Pulmonary Embolism Present on Admission: No [facility] Charge Codes Discharge inpatient/observation: [id number]
--- NOTE | 2025-09-27 09:29 | CM.DPNOTE ---
DCP Continued: Reviewed EMR and team rounds for pt?s medical status. Per MD, patient cleared for discharge today on PO abx. Discharge orders are in. No new discharge needs identified at this time. Pt has own vehicle in the parking lot to transport herself home at time of discharge. Plan: Anticipating discharge on 09/27 or when medically cleared, pt will transport self home. CM Team will continue to follow for coordination of discharge plans. OLGA HaqSW
--- NOTE | 2025-09-27 13:11 | INF.NOTE ---
Pt discharged home at 1310, escorted off floor in wheelchair accompanied by hospital staff. IV removed, discharge teaching completed including new medications, follow up appointments and worsening symptoms. Patient left the floor with all belongings.
== END 2025-09-27 13:12 | disposition home or self-care (01) | DRG 690 ==
LOC: ED 16:14 → AC 22:11
PROVIDERS: Admitting Provider Family Medicine; Emergency Provider Emergency Medicine; PCP Family Medicine; Visit Provider Family Medicine
DX: N30.01 Acute cystitis with hematuria (principal); Z16.24 Resistance to multiple antibiotics; F32.9 Major depressive disorder, single episode, unspecified; B96.5 Pseudomonas (aeruginosa) (mallei) (pseudomallei) as the cause of diseases classified elsewhere; I10 Essential (primary) hypertension; M19.90 Unspecified osteoarthritis, unspecified site; K21.9 Gastro-esophageal reflux disease without esophagitis; J45.909 Unspecified asthma, uncomplicated
CPT/HCPCS: 36415; 80053; 81001; 85025; 87077; 87086; 87186; 96365; 99283; 99284; G0378; J1650; J2543; J7030; J7050